=== PATIENT | female | born 1980 | race Caucasian/White ===

== ENCOUNTER 2020-04-08 10:48 | Emergency (ER) | payer OTHER ==
[~2020-04-08] VITALS: Ht 160 cm; Wt 79.5 kg
--- NOTE | 2020-04-08 11:59 | NUR ---
Pt c/o feeling like "theres fluid in my lungs." Assmt done, VSS, lungs clear. Emotional support provided. MELLO Stafford notified, he will see pt.
[2020-04-08 12:04] VITALS: BP 119/79
[2020-04-08] MEDS ORDERED: loratadine 10mg tablet PO STA (12:19)
[2020-04-08] MEDS ORDERED: benzonatate 100mg capsule PO ONE (12:20)
[2020-04-08] MEDS ORDERED: ALBU8HFA PO (13:02)
[2020-04-08] MEDS ORDERED: LORA-657 PO (13:02)
[2020-04-08] MEDS ORDERED: BENZ-16 PO (13:02)
== END 2020-04-08 13:10 | disposition home or self-care (01) ==
LOC: ER 10:49
DX: U07.1 COVID-19 (principal); R05 Cough; R52 Pain, unspecified; Z88.2 Allergy status to sulfonamides; Z91.011 Allergy to milk products; Z79.899 Other long term (current) drug therapy
CPT/HCPCS: 36415; 71045; 87635; 99284; C9803